=== PATIENT | male | born 1980 | race Two or more races ===

== ENCOUNTER 2016-11-04 12:25 | Emergency (ER) | payer OTHER ==
[~2016-11-04] VITALS: Ht 172.7 cm; Wt 64.0 kg
[~2016-11-04 12:25] MED LIST: CHLO100T24 PO; CLON.5 PO; DSS100 PO; LEVE500T53 PO; LITH600 PO; MIRT15 PO; MULT-248 PO; RISP3 PO
[2016-11-04 12:52] LABS: GLUCOSE COMMENT 1 Doctor Notified; GLUCOSE,POINT OF CARE 95 MG/DL (70-110)
[2016-11-04 13:14] LABS: BASOPHILS # (AUTO) 0.03 K/uL (0.00-0.20); BASOPHILS % (AUTO) 0.5 % (0.0-2.0); EOSINOPHILS # (AUTO) 0.25 K/uL (0.00-0.70); EOSINOPHILS % (AUTO) 4.95 % (1.0-6.0); HEMATOCRIT 35.5 % (41-53); LYMPHOCYTES # (AUTO) 2.4 K/uL (1.0-4.8); LYMPHOCYTES % (AUTO) 46.6 % (22.0-44.0); MEAN CORPUSCULAR HEMOGLOBIN 31.8 pg (26.0-34.0); MEAN CORPUSCULAR HGB CONC 33.9 G/dL (31.0-37.0); MEAN CORPUSCULAR VOLUME 94 fL (80-100); MONOCYTES # (AUTO) 0.5 K/uL (0.1-1.0); MONOCYTES % (AUTO) 9.4 % (2.0-9.0); NEUTROPHILS % (AUTO) 38.6 % (40.0-70.0); PLATELET COUNT (AUTO) 241 K/uL (150-450); RED BLOOD CELL COUNT(AUTO) 3.79 MIL/uL (4.50-5.90); RED CELL DISTRIBUTION WIDTH 14.9 % (11.5-14.5); WHITE BLOOD COUNT (AUTO) 5.1 K/uL (4.5-11.0)
[2016-11-04 13:20] LABS: ANION GAP 6 mmol/L (8-16); CALCIUM, TOTAL 8.4 mg/dL (8.8-10.5); CARBON DIOXIDE 33 mmol/L (22-29); CHLORIDE 102 mmol/L (98-107); CREATININE 0.88 mg/dL (0.60-1.30); GLOMERULAR FILTR. RATE CALC > 60 mL/min (>60); POTASSIUM 4.4 mmol/L (3.5-5.1); SODIUM SERUM 141 mmol/L (136-145); UREA NITROGEN, BLOOD 6 mg/dL (7-18)
[2016-11-04 13:28] LABS: INR 1.3 (0.9-1.1); PROTHROMBIN TIME 13.4 SEC (9.4-11.6)
[2016-11-04 13:35] LABS: B-TYPE NATRIURETIC PEPTIDE < 5 pg/mL (0-100)
[2016-11-04 13:45] LABS: ALANINE AMINOTRANSFERASE 18 U/L (12-78); ALBUMIN 3.6 g/dL (3.4-5.0); ASPARTATE AMINOTRANSFERASE 16 U/L (15-37); BILIRUBIN,TOTAL 0.2 mg/dL (0.1-1.0); CREATINE KINASE, TOTAL 83 U/L (39-308); TOTAL PROTEIN, SERUM 7.7 g/dL (6.4-8.2)
[2016-11-04 13:46] LABS: CREATINE KINASE MB < 0.5 ng/mL (0-5)
[2016-11-04] MEDS ORDERED: LORazepam 2 MG/ML VIAL IM ONE (14:15)
[2016-11-04] MEDS ORDERED: LORazepam 1 MG TABLET PO ONE (14:15)
[2016-11-04] MEDS ORDERED: DiphenhydrAMINE HCL 50 MG/ML VIAL IM ONE (15:45)
[2016-11-04] MEDS ORDERED: LEVOFLOXACIN 750 MG/D5% WATER 150 ML IV ONE (16:30)
[2016-11-04 16:39] LABS: APPEARANCE,URINE CLEAR (CLEAR); GLUCOSE, URINE (UA) NEGATIVE (NEGATIVE); KETONES,URINE NEGATIVE (NEGATIVE); LEUKOCYTE ESTERASE ,URINE NEGATIVE (NEGATIVE); OCCULT BLOOD,URINE NEGATIVE (NEGATIVE); PH,URINE 7.5 (5.0-8.0); PROTEIN,URINE NEGATIVE (NEGATIVE)
[2016-11-04 16:40] LABS: ADD UA MICROSCOPIC NO
[2016-11-04] MEDS ORDERED: LORazepam 2 MG/ML VIAL IVP ONE ×2 (17:45→19:30)
[2016-11-04 17:46] LABS: LACTIC ACID 2.2 mmol/L (0.4-2.0)
[2016-11-04] MEDS ORDERED: SODIUM CHLORIDE 0.9% 1,000 ML IV ONE (18:00)
[2016-11-04 18:58] LABS: REFLEX LACTIC ACID? YES YES
[2016-11-04 19:44] VITALS: BP 118/85
== END 2016-11-04 21:14 | disposition home or self-care (01) ==
LOC: EEVIPCON 12:26 → EMS 12:26
DX: J18.9 Pneumonia, unspecified organism (principal); I10 Essential (primary) hypertension; Z88.0 Allergy status to penicillin; Z88.8 Allergy status to other drugs, medicaments and biological substances
CPT/HCPCS: 36415; 71010; 80053; 81003; 82550; 82553; 82962; 83605; 83880; 84484; 85025; 85610; 85730; 87040; 93005; 96361; 96365; 96372; 96375; 96376; 99285; J1200; J1956; J2060; J7030

== ENCOUNTER 2016-12-23 14:16 | Inpatient (IN) | payer OTHER ==
[~2016-12-23] VITALS: Ht 177.8 cm; Wt 66.5 kg
[2016-12-23] MEDS ORDERED: HALOPERIDOL LACTATE 5 MG/ML VIAL IM ONE (15:45)
[2016-12-23] MEDS ORDERED: LORazepam 2 MG/ML VIAL IM ONE (15:45)
[2016-12-23 16:07] LABS: GLUCOSE,POINT OF CARE 79 MG/DL (70-110)
[2016-12-23] MEDS ORDERED: SODIUM CHLORIDE 0.9% 1,000 ML IV ONE (16:15)
[2016-12-23 16:50] LABS: BASOPHILS # (AUTO) 0.02 K/uL (0.00-0.20); BASOPHILS % (AUTO) 0.3 % (0.0-2.0); EOSINOPHILS # (AUTO) 0.39 K/uL (0.00-0.70); EOSINOPHILS % (AUTO) 5.21 % (1.0-6.0); HEMATOCRIT 35.4 % (41-53); HEMOGLOBIN 11.5 g/dL (13.5-17.5); LYMPHOCYTES % (AUTO) 26.7 % (22.0-44.0); MEAN CORPUSCULAR HEMOGLOBIN 31.8 pg (26.0-34.0); MEAN CORPUSCULAR HGB CONC 32.6 G/dL (31.0-37.0); MEAN CORPUSCULAR VOLUME 97 fL (80-100); MONOCYTES # (AUTO) 0.4 K/uL (0.1-1.0); MONOCYTES % (AUTO) 5.4 % (2.0-9.0); NEUTROPHILS # (AUTO) 4.7 K/uL (1.8-7.7); NEUTROPHILS % (AUTO) 62.4 % (40.0-70.0); PLATELET COUNT (AUTO) 290 K/uL (150-450); RED BLOOD CELL COUNT(AUTO) 3.63 MIL/uL (4.50-5.90); RED CELL DISTRIBUTION WIDTH 14.3 % (11.5-14.5); WHITE BLOOD COUNT (AUTO) 7.5 K/uL (4.5-11.0)
[2016-12-23] MEDS ORDERED: DiphenhydrAMINE HCL 50 MG/ML VIAL IVP ONE (17:00)
[2016-12-23 17:02] LABS: INR 1.2 (0.9-1.1); LITHIUM 1.44 mmol/L (0.60-1.20); PROTHROMBIN TIME 12.5 SEC (9.4-11.6)
[2016-12-23 17:03] LABS: ANION GAP 5 mmol/L (8-16); CALCIUM, TOTAL 9.2 mg/dL (8.8-10.5); CARBON DIOXIDE 30 mmol/L (22-29); CHLORIDE 103 mmol/L (98-107); CREATININE 0.95 mg/dL (0.60-1.30); GLOMERULAR FILTR. RATE CALC > 60 mL/min (>60); POTASSIUM 3.9 mmol/L (3.5-5.1); SODIUM SERUM 138 mmol/L (136-145); UREA NITROGEN, BLOOD 5 mg/dL (7-18)
[2016-12-23 17:09] LABS: B-TYPE NATRIURETIC PEPTIDE 6 pg/mL (0-100)
[2016-12-23 17:27] LABS: ALANINE AMINOTRANSFERASE 23 U/L (12-78); ALBUMIN 3.7 g/dL (3.4-5.0); ASPARTATE AMINOTRANSFERASE 21 U/L (15-37); BILIRUBIN,TOTAL 0.2 mg/dL (0.1-1.0); CREATINE KINASE MB 0.5 ng/mL (0-5); CREATINE KINASE, TOTAL 227 U/L (39-308); TOTAL PROTEIN, SERUM 7.6 g/dL (6.4-8.2)
[2016-12-23 17:49] LABS: ADD UA MICROSCOPIC NO; APPEARANCE,URINE CLEAR (CLEAR); GLUCOSE, URINE (UA) NEGATIVE (NEGATIVE); KETONES,URINE NEGATIVE (NEGATIVE); LEUKOCYTE ESTERASE ,URINE NEGATIVE (NEGATIVE); OCCULT BLOOD,URINE NEGATIVE (NEGATIVE); PROTEIN,URINE NEGATIVE (NEGATIVE)
[2016-12-23] MEDS ORDERED: 0.9% SODIUM CHLORIDE 10 ML SYRINGE IVP PRN (18:15)
[2016-12-23] MEDS ORDERED: ACETAMINOPHEN 325 MG TABLET PO PRN (18:15)
[2016-12-23] MEDS ORDERED: LORazepam 2 MG/ML VIAL IVP ONE (19:15)
[2016-12-23] MEDS ORDERED: MAGNESIUM HYDROXIDE SUSPENSION 30 ML UDCUP PO PRN (21:30)
[2016-12-23] MEDS ORDERED: ALBUTEROL SULFATE 2.5 MG/0.5 ML NEB SOLUTION NEB PRN (21:30)
[2016-12-23] MEDS: QUEtiapine FUMARATE 25 MG TABLET PO SCH (21:47)
[2016-12-23] MEDS: RisperiDONE 3 MG TABLET PO SCH (21:48)
[2016-12-23] MEDS: ClonazePAM 1 MG TABLET PO SCH (21:49)
[2016-12-23] MEDS: DEXTROSE 5%-0.45% SODIUM CHL 500 ML IV SCH (21:50)
[2016-12-23] MEDS: LevETIRAcetam 250 MG in DEXTROSE 5%-WATER 100 ML IV SCH (21:52)
[2016-12-24] MEDS: LORazepam 2 MG/ML VIAL IVP PRN ×5 (00:11→21:31)
[2016-12-24] MEDS: DEXTROSE 5%-0.45% SODIUM CHL 500 ML IV SCH ×2 (03:49→10:29)
[2016-12-24 05:48] LABS: BASOPHILS # (AUTO) 0.02 K/uL (0.00-0.20); BASOPHILS % (AUTO) 0.3 % (0.0-2.0); EOSINOPHILS # (AUTO) 0.35 K/uL (0.00-0.70); HEMATOCRIT 34.1 % (41-53); HEMOGLOBIN 11.2 g/dL (13.5-17.5); LYMPHOCYTES # (AUTO) 1.9 K/uL (1.0-4.8); LYMPHOCYTES % (AUTO) 28.4 % (22.0-44.0); MEAN CORPUSCULAR HEMOGLOBIN 31.9 pg (26.0-34.0); MEAN CORPUSCULAR HGB CONC 32.9 G/dL (31.0-37.0); MEAN CORPUSCULAR VOLUME 97 fL (80-100); MONOCYTES # (AUTO) 0.5 K/uL (0.1-1.0); MONOCYTES % (AUTO) 7.7 % (2.0-9.0); NEUTROPHILS # (AUTO) 3.9 K/uL (1.8-7.7); NEUTROPHILS % (AUTO) 58.3 % (40.0-70.0); PLATELET COUNT (AUTO) 277 K/uL (150-450); RED BLOOD CELL COUNT(AUTO) 3.51 MIL/uL (4.50-5.90); RED CELL DISTRIBUTION WIDTH 14.5 % (11.5-14.5); WHITE BLOOD COUNT (AUTO) 6.7 K/uL (4.5-11.0)
[2016-12-24 06:05] LABS: ALANINE AMINOTRANSFERASE 22 U/L (12-78); ALBUMIN 3.4 g/dL (3.4-5.0); ANION GAP 4 mmol/L (8-16); ASPARTATE AMINOTRANSFERASE 27 U/L (15-37); BILIRUBIN,TOTAL 0.2 mg/dL (0.1-1.0); CALCIUM, TOTAL 8.7 mg/dL (8.8-10.5); CARBON DIOXIDE 30 mmol/L (22-29); CHLORIDE 104 mmol/L (98-107); CREATININE 0.81 mg/dL (0.60-1.30); GLOMERULAR FILTR. RATE CALC > 60 mL/min (>60); POTASSIUM 3.7 mmol/L (3.5-5.1); SODIUM SERUM 138 mmol/L (136-145); UREA NITROGEN, BLOOD 4 mg/dL (7-18)
[2016-12-24] MEDS: PANTOPRAZOLE SODIUM 40 MG/VIAL IVP SCH (08:22)
[2016-12-24] MEDS: LevETIRAcetam 250 MG in DEXTROSE 5%-WATER 100 ML IV SCH ×2 (09:10→22:15)
[2016-12-24] MEDS: ClonazePAM 1 MG TABLET PO SCH ×2 (09:10→20:27)
[2016-12-24] MEDS: HEPARIN SODIUM,PORCINE 5,000 UNITS/ML VIAL SQ SCH ×2 (09:11→20:28)
[2016-12-24] MEDS: RisperiDONE 3 MG TABLET PO SCH ×2 (09:13→20:27)
[2016-12-24 15:56] VITALS: BP 113/63
[2016-12-24] MEDS: QUEtiapine FUMARATE 25 MG TABLET PO SCH (20:28)
[2016-12-24 21:25] VITALS: BP 103/63
[2016-12-24] MEDS ORDERED: SODIUM CHLORIDE 0.9% 500 ML IV ONE (21:57)
[2016-12-24] MEDS: ACETAMINOPHEN 325 MG TABLET PO PRN (22:26)
[2016-12-24] MEDS ORDERED: HALOPERIDOL LACTATE 5 MG/ML VIAL IM ONE (23:15)
[2016-12-24 23:37] VITALS: BP 112/76
[2016-12-25] MEDS: DEXTROSE 5%-0.45% SODIUM CHL 1,000 ML IV SCH (01:30)
[2016-12-25] MEDS: LORazepam 2 MG/ML VIAL IVP PRN ×3 (03:29→17:10)
[2016-12-25 04:18] VITALS: BP 110/77
[2016-12-25] MEDS: HEPARIN SODIUM,PORCINE 5,000 UNITS/ML VIAL SQ SCH ×2 (07:27→20:07)
[2016-12-25] MEDS: PANTOPRAZOLE SODIUM 40 MG/VIAL IVP SCH (07:28)
[2016-12-25] MEDS: RisperiDONE 3 MG TABLET PO SCH ×2 (07:28→20:07)
[2016-12-25] MEDS: ClonazePAM 1 MG TABLET PO SCH ×2 (07:28→20:06)
[2016-12-25 07:43] VITALS: BP 120/84
[2016-12-25 11:28] VITALS: BP 132/75
[2016-12-25] MEDS: LevETIRAcetam 250 MG in DEXTROSE 5%-WATER 100 ML IV SCH ×2 (13:52→23:13)
[2016-12-25] MEDS ORDERED: 0.9% SODIUM CHLORIDE 10 ML SYRINGE IVP PRN (14:15)
[2016-12-25 17:12] VITALS: BP 118/76
[2016-12-25 20:00] VITALS: BP 111/72
[2016-12-25] MEDS: QUEtiapine FUMARATE 25 MG TABLET PO SCH (20:06)
[2016-12-25] MEDS: LITHIUM CARBONATE 300 MG CAPSULE PO SCH (20:07)
[2016-12-26] VITALS: BP 129/79
[2016-12-26] MEDS: DEXTROSE 5%-0.45% SODIUM CHL 1,000 ML IV SCH ×2 (08:45→20:05)
[2016-12-26] MEDS: RisperiDONE 3 MG TABLET PO SCH ×2 (10:56→20:04)
[2016-12-26] MEDS: PANTOPRAZOLE SODIUM 40 MG/VIAL IVP SCH (10:56)
[2016-12-26] MEDS: ClonazePAM 1 MG TABLET PO SCH ×2 (10:56→20:04)
[2016-12-26] MEDS: HEPARIN SODIUM,PORCINE 5,000 UNITS/ML VIAL SQ SCH ×2 (10:58→20:05)
[2016-12-26] MEDS: LevETIRAcetam 250 MG in DEXTROSE 5%-WATER 100 ML IV SCH ×2 (10:58→21:11)
[2016-12-26] MEDS: LORazepam 2 MG/ML VIAL IVP PRN ×2 (10:58→15:55)
[2016-12-26 15:53] VITALS: BP 122/87
[2016-12-26 20:00] VITALS: BP 119/85
[2016-12-26] MEDS: LITHIUM CARBONATE 300 MG CAPSULE PO SCH (20:04)
[2016-12-26] MEDS: QUEtiapine FUMARATE 25 MG TABLET PO SCH (21:11)
[2016-12-27] MEDS: LORazepam 2 MG/ML VIAL IVP PRN ×3 (03:59→18:51)
[2016-12-27 04:20] VITALS: BP 115/73
[2016-12-27 06:46] LABS: ANION GAP 9 mmol/L (8-16); CALCIUM, TOTAL 9.2 mg/dL (8.8-10.5); CARBON DIOXIDE 27 mmol/L (22-29); CHLORIDE 100 mmol/L (98-107); CREATININE 0.75 mg/dL (0.60-1.30); GLOMERULAR FILTR. RATE CALC > 60 mL/min (>60); POTASSIUM 4.5 mmol/L (3.5-5.1); SODIUM SERUM 136 mmol/L (136-145); UREA NITROGEN, BLOOD 7 mg/dL (7-18)
[2016-12-27 06:59] LABS: BASOPHILS # (AUTO) 0.04 K/uL (0.00-0.20); BASOPHILS % (AUTO) 0.6 % (0.0-2.0); EOSINOPHILS # (AUTO) 0.27 K/uL (0.00-0.70); EOSINOPHILS % (AUTO) 3.94 % (1.0-6.0); HEMOGLOBIN 12.7 g/dL (13.5-17.5); LYMPHOCYTES % (AUTO) 43.8 % (22.0-44.0); MEAN CORPUSCULAR HEMOGLOBIN 31.7 pg (26.0-34.0); MEAN CORPUSCULAR HGB CONC 32.4 G/dL (31.0-37.0); MEAN CORPUSCULAR VOLUME 98 fL (80-100); MONOCYTES # (AUTO) 0.7 K/uL (0.1-1.0); MONOCYTES % (AUTO) 10.5 % (2.0-9.0); NEUTROPHILS # (AUTO) 2.8 K/uL (1.8-7.7); NEUTROPHILS % (AUTO) 41.1 % (40.0-70.0); PLATELET COUNT (AUTO) 310 K/uL (150-450); RED BLOOD CELL COUNT(AUTO) 3.99 MIL/uL (4.50-5.90); RED CELL DISTRIBUTION WIDTH 14.9 % (11.5-14.5); WHITE BLOOD COUNT (AUTO) 6.9 K/uL (4.5-11.0)
[2016-12-27 07:26] VITALS: BP 145/62
[2016-12-27] MEDS: PANTOPRAZOLE SODIUM 40 MG/VIAL IVP SCH (08:42)
[2016-12-27] MEDS: ClonazePAM 1 MG TABLET PO SCH ×2 (08:43→20:39)
[2016-12-27] MEDS: RisperiDONE 3 MG TABLET PO SCH (08:43)
[2016-12-27] MEDS: HEPARIN SODIUM,PORCINE 5,000 UNITS/ML VIAL SQ SCH ×2 (08:43→20:39)
[2016-12-27] MEDS: LevETIRAcetam 250 MG in DEXTROSE 5%-WATER 100 ML IV SCH ×2 (10:09→21:05)
[2016-12-27] MEDS: DEXTROSE 5%-0.45% SODIUM CHL 1,000 ML IV SCH ×3 (11:01→12:47)
[2016-12-27 12:23] VITALS: BP 109/74
[2016-12-27 15:17] VITALS: BP 133/68
[2016-12-27] MEDS: ACETAMINOPHEN 325 MG TABLET PO PRN (16:10)
[2016-12-27 20:32] VITALS: BP 117/61
[2016-12-27] MEDS: LITHIUM CARBONATE 300 MG CAPSULE PO SCH (20:39)
[2016-12-27] MEDS: RisperiDONE 4 MG TABLET PO SCH (20:40)
[2016-12-28] VITALS (7 sets, daily range): BP systolic 104–146; BP diastolic 62–81
[2016-12-28] MEDS: DEXTROSE 5%-0.45% SODIUM CHL 1,000 ML IV SCH ×3 (02:17→23:28)
[2016-12-28] MEDS: PANTOPRAZOLE SODIUM 40 MG/VIAL IVP SCH (08:03)
[2016-12-28] MEDS: HEPARIN SODIUM,PORCINE 5,000 UNITS/ML VIAL SQ SCH ×2 (08:03→19:56)
[2016-12-28] MEDS: RisperiDONE 4 MG TABLET PO SCH ×2 (08:04→19:56)
[2016-12-28] MEDS: ClonazePAM 1 MG TABLET PO SCH ×2 (08:04→19:55)
[2016-12-28] MEDS: LevETIRAcetam 250 MG in DEXTROSE 5%-WATER 100 ML IV SCH ×2 (09:13→21:31)
[2016-12-28] MEDS: LORazepam 2 MG/ML VIAL IVP PRN ×2 (10:13→17:00)
[2016-12-28] MEDS: LITHIUM CARBONATE 300 MG CAPSULE PO SCH (19:56)
[2016-12-29 03:52] VITALS: BP 113/71
[2016-12-29 07:00] VITALS: BP 108/67
[2016-12-29] MEDS: RisperiDONE 4 MG TABLET PO SCH ×2 (08:47→20:03)
[2016-12-29] MEDS: ClonazePAM 1 MG TABLET PO SCH ×2 (08:47→20:03)
[2016-12-29] MEDS: HEPARIN SODIUM,PORCINE 5,000 UNITS/ML VIAL SQ SCH ×2 (08:48→20:03)
[2016-12-29] MEDS: PANTOPRAZOLE SODIUM 40 MG/VIAL IVP SCH (08:48)
[2016-12-29] MEDS: LevETIRAcetam 250 MG in DEXTROSE 5%-WATER 100 ML IV SCH ×2 (09:27→22:02)
[2016-12-29 11:47] VITALS: BP 111/69
[2016-12-29] MEDS: LORazepam 2 MG/ML VIAL IVP PRN ×3 (12:16→23:54)
[2016-12-29] MEDS: DEXTROSE 5%-0.45% SODIUM CHL 1,000 ML IV SCH (12:17)
[2016-12-29] MEDS: ACETAMINOPHEN 325 MG TABLET PO PRN (14:25)
[2016-12-29 15:55] VITALS: BP 105/59
[2016-12-29 20:00] VITALS: BP 117/65
[2016-12-29] MEDS: LITHIUM CARBONATE 300 MG CAPSULE PO SCH (20:03)
[2016-12-30] VITALS (7 sets, daily range): BP systolic 98–120; BP diastolic 63–82
[2016-12-30 08:54] LABS: ANION GAP 9 mmol/L (8-16); CARBON DIOXIDE 28 mmol/L (22-29); CHLORIDE 99 mmol/L (98-107); CREATININE 0.78 mg/dL (0.60-1.30); GLOMERULAR FILTR. RATE CALC > 60 mL/min (>60); POTASSIUM 3.4 mmol/L (3.5-5.1); SODIUM SERUM 136 mmol/L (136-145); UREA NITROGEN, BLOOD 7 mg/dL (7-18)
[2016-12-30 08:57] LABS: BASOPHILS % (AUTO) 0.8 % (0.0-2.0); EOSINOPHILS % (AUTO) 2.9 % (1.0-6.0); HEMATOCRIT 36.3 % (41-53); HEMOGLOBIN 11.6 g/dL (13.5-17.5); LYMPHOCYTES # (AUTO) 2.1 K/uL (1.0-4.8); LYMPHOCYTES % (AUTO) 32.1 % (22.0-44.0); MEAN CORPUSCULAR HEMOGLOBIN 31.2 pg (26.0-34.0); MEAN CORPUSCULAR HGB CONC 31.8 G/dL (31.0-37.0); MEAN CORPUSCULAR VOLUME 98 fL (80-100); MONOCYTES # (AUTO) 0.5 K/uL (0.1-1.0); MONOCYTES % (AUTO) 8.5 % (2.0-9.0); NEUTROPHILS # (AUTO) 3.6 K/uL (1.8-7.7); NEUTROPHILS % (AUTO) 55.7 % (40.0-70.0); PLATELET COUNT (AUTO) 393 K/uL (150-450); RED CELL DISTRIBUTION WIDTH 15.2 % (11.5-14.5); WHITE BLOOD COUNT (AUTO) 6.4 K/uL (4.5-11.0)
[2016-12-30 09:05] LABS: LITHIUM 0.27 mmol/L (0.60-1.20)
[2016-12-30] MEDS: ClonazePAM 1 MG TABLET PO SCH ×2 (09:07→20:14)
[2016-12-30] MEDS: RisperiDONE 4 MG TABLET PO SCH ×2 (09:07→20:14)
[2016-12-30] MEDS: HEPARIN SODIUM,PORCINE 5,000 UNITS/ML VIAL SQ SCH ×2 (09:07→20:14)
[2016-12-30] MEDS: PANTOPRAZOLE SODIUM 40 MG/VIAL IVP SCH (09:59)
[2016-12-30] MEDS: LevETIRAcetam 250 MG in DEXTROSE 5%-WATER 100 ML IV SCH ×2 (09:59→22:25)
[2016-12-30] MEDS: LORazepam 2 MG/ML VIAL IVP PRN (15:24)
[2016-12-30] MEDS: DEXTROSE 5%-0.45% SODIUM CHL 1,000 ML IV SCH (16:25)
[2016-12-30] MEDS: LITHIUM CARBONATE 300 MG CAPSULE PO SCH (20:14)
[2016-12-31 04:11] VITALS: BP 109/67
[2016-12-31 08:10] VITALS: BP 109/72
[2016-12-31] MEDS: HEPARIN SODIUM,PORCINE 5,000 UNITS/ML VIAL SQ SCH ×2 (08:41→20:37)
[2016-12-31] MEDS: PANTOPRAZOLE SODIUM 40 MG/VIAL IVP SCH (08:41)
[2016-12-31] MEDS: RisperiDONE 4 MG TABLET PO SCH ×2 (08:41→20:36)
[2016-12-31] MEDS: ClonazePAM 1 MG TABLET PO SCH ×2 (08:42→20:36)
[2016-12-31] MEDS: LevETIRAcetam 250 MG in DEXTROSE 5%-WATER 100 ML IV SCH ×2 (11:29→20:37)
[2016-12-31 12:04] VITALS: BP 112/72
[2016-12-31] MEDS: DEXTROSE 5%-0.45% SODIUM CHL 1,000 ML IV SCH ×2 (12:13→12:15)
[2016-12-31] MEDS: LORazepam 2 MG/ML VIAL IVP PRN (12:44)
[2016-12-31 15:31] VITALS: BP 111/77
[2016-12-31 20:06] VITALS: BP 110/75
[2016-12-31] MEDS: LITHIUM CARBONATE 300 MG CAPSULE PO SCH (20:36)
[2017-01-01] VITALS (7 sets, daily range): BP systolic 102–120; BP diastolic 65–76
[2017-01-01] MEDS: DEXTROSE 5%-0.45% SODIUM CHL 1,000 ML IV SCH ×2 (04:58→15:48)
[2017-01-01] MEDS: LevETIRAcetam 250 MG in DEXTROSE 5%-WATER 100 ML IV SCH ×2 (09:10→19:56)
[2017-01-01] MEDS: LORazepam 2 MG/ML VIAL IVP PRN ×2 (09:11→15:48)
[2017-01-01] MEDS: PANTOPRAZOLE SODIUM 40 MG/VIAL IVP SCH (09:11)
[2017-01-01] MEDS: ClonazePAM 1 MG TABLET PO SCH ×2 (09:11→19:52)
[2017-01-01] MEDS: HEPARIN SODIUM,PORCINE 5,000 UNITS/ML VIAL SQ SCH ×2 (09:11→19:52)
[2017-01-01] MEDS: RisperiDONE 4 MG TABLET PO SCH ×2 (09:31→19:52)
[2017-01-01] MEDS: LITHIUM CARBONATE 300 MG CAPSULE PO SCH (19:52)
[2017-01-02 05:21] VITALS: BP 112/73
[2017-01-02 07:00] VITALS: BP 129/76
[2017-01-02] MEDS: RisperiDONE 4 MG TABLET PO SCH (09:06)
[2017-01-02] MEDS: ClonazePAM 1 MG TABLET PO SCH (09:06)
[2017-01-02] MEDS: HEPARIN SODIUM,PORCINE 5,000 UNITS/ML VIAL SQ SCH (09:07)
[2017-01-02] MEDS: PANTOPRAZOLE SODIUM 40 MG/VIAL IVP SCH (09:07)
[2017-01-02 11:46] VITALS: BP 120/77
[2017-01-02] MEDS: LevETIRAcetam 250 MG in DEXTROSE 5%-WATER 100 ML IV SCH (12:32)
[2017-01-02 15:36] VITALS: BP 136/76
== END 2017-01-02 17:10 | disposition home or self-care (01) | DRG 421 ==
LOC: EMS 14:19 → 6N 12-24 14:44
PROVIDERS: ADMIT Internal Medicine; ATTEND Internal Medicine
DX: R62.7 Adult failure to thrive (principal); E43 Unspecified severe protein-calorie malnutrition; R64 Cachexia; I10 Essential (primary) hypertension; G40.909 Epilepsy, unspecified, not intractable, without status epilepticus; E11.9 Type 2 diabetes mellitus without complications; I45.81 Long QT syndrome; F99 Mental disorder, not otherwise specified; F25.0 Schizoaffective disorder, bipolar type; E86.0 Dehydration; Z78.1 Physical restraint status; Z88.8 Allergy status to other drugs, medicaments and biological substances; Z88.0 Allergy status to penicillin; Z79.899 Other long term (current) drug therapy; Z68.21 Body mass index [BMI] 21.0-21.9, adult
CPT/HCPCS: 82962; 92526; 92610; 93005; 96361; 96372; 96374; 96375; 99285; C9113; G0480; J0712; J1200; J1630; J1644; J2060; J7030; J7040; J7060